=== PATIENT | male | born 1960 | race Caucasian/White ===

== ENCOUNTER 2021-10-09 20:25 | Emergency (ER) | payer MEDICARE, SELFPAY ==
--- NOTE | 2021-10-09 20:36 | ECG_ITS ---
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 Measurements Intervals Green Rate: 85 P: 66 [place]: 196 QRS: 0 QRSD: 101 T: 82 QT: 378 QTc: 450 Interpretive Statements SINUS RHYTHM Unusual R wave progression, consider lead switch leads V1 and V2 MINIMAL VOLTAGE CRITERIA FOR LVH, CONSIDER NORMAL VARIANT [MEETS CRITERIA IN ONE OF: R(aVL), S(V1), R(V5), R(V5/V6)+S(V1)] NONSPECIFIC T-WAVE ABNORMALITY No previous ECG available for comparison Electronically Signed On 10-10-2021 8:27:05 CDT by Fortino Braden M.D. [id number]
[2021-10-09 20:39] VITALS: BP 183/112; PULSE 89; RESP 20; TEMP 36.6; O2SAT 98; BMI 37.7
--- NOTE | 2021-10-09 21:00 | XRR_ITS ---
PROCEDURE INFORMATION: Exam: XR Chest Exam date and time: 10/09/2021 9:06 PM Age: 61 years old Clinical indication: Pain; Left-sided; Additional info: L shoulder chest pain TECHNIQUE: Imaging protocol: Radiologic exam of the chest. Views: 1 view. COMPARISON: No relevant prior studies available. FINDINGS: Lungs: Mild atelectasis in the left lung base. The right lung is clear. No consolidation. Pleural spaces: Unremarkable. No pleural effusion. No pneumothorax. Heart/Mediastinum: Probable calcified mediastinal and left hilar lymph nodes. Bones/joints: Rightward thoracic curvature. XR/XR chest 1V portable [id number] IMPRESSION: No acute finding.
--- NOTE | 2021-10-09 21:00 | XRR_ITS ---
PROCEDURE INFORMATION: Exam: XR Left Shoulder Exam date and time: 10/09/2021 9:06 PM Age: 61 years old Clinical indication: Condition or disease; Other: Pain in left shoulder; Additional info: L shoulder pain TECHNIQUE: Imaging protocol: Radiologic exam of the Left shoulder. Views: 2 or more views. COMPARISON: No relevant prior studies available. FINDINGS: Bones/joints: Hypertrophic degenerative changes of the left acromioclavicular joint. Mild degenerative changes of the glenohumeral joint. No fracture. Soft tissues: Normal. XR/XR shoulder LT min 2V* [id number] IMPRESSION: No acute finding.
[2021-10-09 21:14] LABS: Basophils # 0.1 10^3/uL (0.0-0.1); Basophils % 0.6 %; Eosinophils # 0.3 10^3/uL (0.0-0.8); Eosinophils % 3.3 %; Hematocrit 52.5 % (42.0-52.0); Hemoglobin 17.4 g/dL (11.7-16.6); Lymphocytes # 2.5 10^3/uL (0.8-4.8); Lymphocytes % 31.5 %; Mean Corpuscular HGB Conc 33.1 g/dL (30.0-36.0); Mean Corpuscular Hemoglobin 29.4 pg (28.0-34.0); Mean Corpuscular Volume 88.8 fl (80-94); Mean Platelet Volume 9.8 fL (7.4-10.4); Monocytes # 0.7 10^3/uL (0.2-0.9); Monocytes % 9.5 %; Neutrophils # 4.25 10^3/uL (1.8-7.7); Neutrophils % 54.7 %; Nucleated Red Blood Cells % 0 %; Platelet Count 244 10^3/cmm (130-400); Red Blood Count 5.91 10^6/uL (4.1-5.3); Red Cell Distribution Width 12.9 % (12.1-15.1); White Blood Count 7.8 10^3/uL (4.0-10.0)
[2021-10-09] MEDS: ondansetron 2 mg/ML SDV 2 mL 4 MG IVP (21:21)
[2021-10-09] MEDS: morphine 4 mg/mL SDV 1 mL IVP (21:21)
[2021-10-09 21:31] LABS: Troponin(5th) Baseline 9 ng/L (0-15)
[2021-10-09 21:41] LABS: Alanine Aminotransferase 21 U/L (0-41); Albumin Level 4.4 g/dL (3.5-5.2); Alkaline Phosphatase 131 U/L (40-130); Anion Gap 17.2 (5-19); Aspartate Amino Transferase 18 U/L (0-40); Blood Urea Nitrogen 14 mg/dL (8-23); Calcium 9.4 mg/dL (8.5-10.5); Carbon Dioxide 26 mmol/L (22-29); Chloride 103 mmol/L (98-107); Globulin 2.5 g/dL (1.3-4.6); Glomerular Filtration Rate 97.6 mL/min (90-130); Glucose 164 mg/dL (65-115); NT Pro B Type Natriuretic Pept 18 pg/mL (0-125); Osmolality Calculated 298 mOsm/kg (285-295); Potassium 4.2 mmol/L (3.5-5.1); Sodium 142 mmol/L (136-145); Total Bilirubin 0.2 mg/dL (0.15-1.2); Total Protein 6.9 g/dL (6.6-8.7)
--- NOTE | 2021-10-09 21:58 | ED_ITS ---
HPI - Chest Pain General: Chief Complaint: Chest Pain Stated Complaint: CP; left arm pain Time Seen by Provider: 10/09/21 20:48 Source: patient History of Present Illness: 61-year-old male with no prior history of coronary disease. He notes left shoulder pain worsening over 3 weeks. It became unbearable today. He localizes pain to the left posterior shoulder joint line specifically and around his left shoulder blade. He denies fever. He denies significant cough. He denies worsening shortness of breath. He denies any other chest pain. He has pain with movement of his left arm. MD complaint: other (Left shoulder pain) Onset (ago): week(s) (3) Prior episodes: Yes Onset: during rest Pain location: other (Left shoulder) Pain radiation: left scapula Severity: severe Quality: sharp Relieving factors: nothing Exacerbating factors: nothing Associated symptoms: Deny abdominal pain, dyspnea, fever(s), leg edema, nausea, palpitations or vomiting Review of Systems Const: Denies: fever(s) Eyes: Denies: change in vision ENMT: Denies: throat pain Card: Denies: chest pain or palpitations Resp: Denies: dyspnea, productive cough or non-productive cough GI: Denies: abdominal pain, nausea or vomiting : Denies: flank pain Musc: Denies: neck pain Skin/Breast: Denies: rash Neuro: Denies: headache(s) Physical Exam Const: GENERAL APPEARANCE: cooperative; not comfortable HENMT: COMMON NORMALS: normocephalic, atraumatic and Normal external nose pre sent HEAD & SCALP: normocephalic and atraumatic NOSE: Normal external nose present Eye: COMMON NORMALS: Equal, round and reactive pupils present and EOMs intact bilaterally PUPIL: Yes Equal, round and reactive pupils present Neck/C-Spine: COMMON NORMALS: full ROM and no meningeal signs GENERAL: Yes trachea midline CERVICAL SPINE: No Cervical spine tenderness Chest: CHEST: Yes Symmetrical chest wall rise Resp: COMMON NORMALS: normal respiratory effort, No use of accessory muscles and clear to auscultation bilaterally AUSCULTATION: clear to auscultation bilaterally Cardio: COMMON NORMALS: regular rate and regular rhythm RATE: regular rate RHYTHM: regular rhythm GI: COMMON NORMALS: Normal to inspection, nondistended, normoactive bowel sounds present, Soft to palpation and non-tender PALPATION: Yes Soft to palpation Extremity: NARRATIVE EXTREMITY EXAM: Examination of the left shoulder reveals tenderness to the posterior shoulder joint line as well as the anterior shoulder joint line and mildly at the AC joint. There is pain with range of motion. There is pain with full can, empty can, and speeds testing. No palpable effusion. No redness or warmth. Neuro: MARIS COMA SCALE: document GCS findings Stanley coma scale eye opening: Spontaneous Stanley coma scale verbal response: Orientated Stanley coma scale motor response: Obey commands Maris coma scale total score: 15 MENINGEAL SIGNS: Yes no meningeal signs Skin: COMMON NORMALS: no rashes or lesions noted GENERAL SKIN EXAM: no rashes or lesions noted Course Vital Signs: Vital signs: Vital Signs Temperature 97.8 F 10/09/21 20:39 Pulse Rate 89 10/09/21 20:39 Respiratory Rate 20 H 10/09/21 22:30 Blood Pressure 183/112 10/09/21 20:39 Pulse Oximetry 98 10/09/21 22:30 Oxygen Delivery Me thod 10/09/21 20:39 MDM - Chest Pain Medical Decision Making 61 year old gentleman with increasing shoulder pain over the last month or so. There is no fever. No increase to swelling, or redness. The pain seemed to spread into his [place] day potentially. The left upper chest. He's much improved after morphine currently. Is CBC is essentially normal with a mild increased hemoglobin. His BMP is normal. His baseline trop is normal. BNP normal. chest X-ray is not remarkable here and his shoulder X-ray shows some osteoarthritic change. His EKG shows no acute St changes indicative of ischemia. He'll be discharged with treatment for his shoulder pain. Orthopedic follow up. Lab Data : 10/09/21 21:00 10/09/21 21:00 Radiology Impressions Chest X-Ray 10/09/21 21:00 IMPRESSION: No acute finding. Shoulder X-Ray 10/09/21 21:00 IMPRESSION: No acute finding. Laboratory Results WBC 7.8 10^3/uL (4.0-10.0) 10/09/21 21:00 RBC 5.91 10^6/uL (4.1-5.3) H 10/09/21 21:00 Hgb 17.4 g/dL (11.7-16.6) H 10/09/21 21:00 Hct 52.5 % (42.0-52.0) H 10/09/21 21:00 MCV 88.8 fl (80-94) 10/09/21 21:00 MCH 29.4 pg (28.0-34.0) 10/09/21 21:00 MCHC 33.1 g/dL (30.0-36.0) 10/09/21 21:00 RDW 12.9 % (12.1-15.1) 10/09/21 21:00 Plt Count 244 10^3/cmm (130-400) 10/09/21 21:00 MPV 9.8 fL (7.4-10.4) 10/09/21 21:00 Neut % (Auto) 54.7 % 10/09/21 21:00 Lymph % (Auto) 31.5 % 10/09/21 21:00 [place] % (Auto) 9.5 % 10/09/21 21:00 Eos % (Auto) 3.3 % 10/09/21 21:00 Baso % (Auto) 0.6 % 10/09/21 21:00 Neut # (Auto) 4.25 10^3/uL (1.8-7.7) 10/09/21 21:00 Lymph # (Auto) 2.5 10^3/uL (0.8-4.8) 10/09/21 21:00 [place] # (Auto) 0.7 10^3/uL (0.2-0.9) 10/09/21 21:00 Eos # (Auto) 0.3 10^3/uL (0.0-0.8) 10/09/21 21:00 Baso # (Auto) 0.1 10^3/uL (0.0-0.1) 10/09/21 21:00 Nucleated RBC % (auto) 0 % 10/09/21 21:00 Nucleated RBCs # 0.0 /100WBC 10/09/21 21:00 Sodium 142 mmol/L (136-145) 10/09/21 21:00 Potassium 4.2 mmol/L (3.5-5.1) 10/09/21 21:00 Chloride 103 mmol/L (98-107) 10/09/21 21:00 Carbon Dioxide 26 mmol/L (22-29) 10/09/21 21:00 Anion Gap 17.2 (5-19) 10/09/21 21:00 BUN 14 mg/dL (8-23) 10/09/21 21:00 Creatinine 0.8 mg/dL (0.7-1.2) 10/09/21 21:00 GFR Calculation 97.6 mL/min (90-130) 10/09/21 21:00 Glucose 164 mg/dL (65-115) H 10/09/21 21:00 Calculated Osmolality 298 mOsm/kg (285-295) H 10/09/21 21:00 Calcium 9.4 mg/dL (8.5-10.5) 10/09/21 21:00 Total Bilirubin 0.2 mg/dL (0.15-1.2) 10/09/21 21:00 AST 18 U/L (0-40) 10/09/21 21:00 ALT 21 U/L (0-41) 10/09/21 21:00 Alkaline Phosphatase 131 U/L (40-130) H 10/09/21 21:00 Troponin T Baseline 9 ng/L (0-15) 10/09/21 21:00 NT-Pro-B Natriuret Pep 18 pg/mL (0-125) 10/09/21 21:00 Total Protein 6.9 g/dL (6.6-8.7) 10/09/21 21:00 Albumin 4.4 g/dL (3.5-5.2) 10/09/21 21:00 Globulin 2.5 g/dL (1.3-4.6) 10/09/21 21:00 Discharge Plan Discharge Patient Disposition: Home Clinical Impression: Acute pain of left shoulder Condition: Stable Prescriptions: New hydrocodone-acetaminophen 5-325 mg tablet 1 tab PO Q8H PRN (Reason: pain) Qty: 7 0RF Medrol (Osman) 4 mg tablets,dose pack See Rx Instructions .ROUTE .COMPLEX Qty: 21 0RF Rx Instructions: orally per package directions Discharge Orders: Discharge ED (Routine); Ordered 10/09/21 Ordered By: Enrico Holm Referrals: REMI COTO MD [Primary Care Provider] - 1-3 days Walter Cote MD [Physician] - 4-7 days Patient Instructions: Shoulder Pain (ED), Opioid Safety Activity Restrictions/Additional Instructions: Return for fever greater than 100, worsening shortness of breath, any chest discomfort, other concerning symptoms. Call the orthopedic clinic Monday for an appointment. Follow-up with your doctor as well Coding Level of Care Code ED Sheet Rock Applicator for Chg Fwd Exam Comprehensive
[2021-10-09 22:30] VITALS: RESP 20; O2SAT 98
[2021-10-09] MEDS: oxyCODONE-APAP 5-325 mg Tablet 2 TAB PO (22:30)
== END 2021-10-09 22:34 | disposition home or self-care (01) ==
PROVIDERS: Emergency Provider Emergency Medicine; PCP Family Medicine
DX: M25.512 Pain in left shoulder (principal); R07.9 Chest pain, unspecified
CPT/HCPCS: 71045; 73030; 80053; 83880; 84484; 85025; 93005; 96374; 96375; 99285; J2270; J2405; J2930

== ENCOUNTER 2022-10-01 15:36 | Emergency (ER) | payer MEDICARE, SELFPAY ==
[2022-10-01] VITALS (28 sets, daily range): BP systolic 99–156; BP diastolic 58–81; PULSE 53–65; RESP 13–19; TEMP 36.8; O2SAT 92–97; BMI 37.7
--- NOTE | 2022-10-01 15:55 | XRR_ITS ---
PROCEDURE INFORMATION: Exam: XR Right Hand Exam date and time: 10/01/2022 4:13 PM Age: 62 years old Clinical indication: Swelling; Hand; Right; Additional info: Pain/swelling TECHNIQUE: Imaging protocol: Radiologic exam of the right hand. Views: 3 or more views. COMPARISON: No relevant prior studies available. FINDINGS: Bones/joints: No fracture or dislocation is seen about the right hand. Slight degenerative change. No bone erosion or destruction. Soft tissues: Lateral view suggests mild soft tissue swelling. XR/XR hand RT min 3V* [id number] IMPRESSION: No fracture or acute osseous abnormality.
--- NOTE | 2022-10-01 15:59 | ECG_ITS ---
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 Measurements Intervals [place] Rate: 61 P: 46 DE: 217 QRS: 7 QRSD: 93 T: 50 QT: 493 QTc: 499 Interpretive Statements SINUS RHYTHM WITH FIRST DEGREE AV BLOCK MINIMAL VOLTAGE CRITERIA FOR LVH, CONSIDER NORMAL VARIANT [MEETS CRITERIA IN ONE OF: R(aVL), S(V1), R(V5), R(V5/V6)+S(V1)] PROLONGED QT INTERVAL INTERPRETATION BASED ON A DEFAULT AGE OF 40 YEARS Compared to ECG 10/09/2021 20:36:59 First degree AV block now present Prolonged QT interval now present T-wave abnormality no longer present Electronically Signed On 10-01-2022 23:25:23 CDT by Alta Joyce M.D. [id number]
--- NOTE | 2022-10-01 16:03 | XRR_ITS ---
PROCEDURE INFORMATION: Exam: XR Right Wrist Exam date and time: 10/01/2022 4:15 PM Age: 62 years old Clinical indication: Swelling; Wrist; Right; Additional info: Pain TECHNIQUE: Imaging protocol: Radiologic exam of the right wrist. Views: 3 or more views. COMPARISON: CR (UP EX, ) 10/01/2022 4:13 PM FINDINGS: Bones/joints: No fracture or dislocation is seen. Mild degenerative change. No bone erosion or destruction. Soft tissues: No significant focal soft tissue abnormality. Vasculature: Small-vessel radial artery calcification. XR/XR wrist RT min 3V* [id number] IMPRESSION: Mild degenerative change. No fracture or acute osseous abnormality.
--- NOTE | 2022-10-01 16:03 | XRR_ITS ---
PROCEDURE INFORMATION: Exam: XR Right Elbow Exam date and time: 10/01/2022 4:16 PM Age: 62 years old Clinical indication: Swelling; Elbow; Right; Additional info: Pain TECHNIQUE: Imaging protocol: Radiologic exam of the right elbow. Views: 3 or more views. COMPARISON: CR (UP EXM, ) 10/01/2022 4:15 PM FINDINGS: Bones/joints: No fracture or dislocation. Chronic appearing calcification or ossification is seen about the medial and lateral distal humerus. Mild enthesophyte noted about posterior olecranon on the lateral view. Joint spaces appear maintained. No abnormal fat pad is seen about the distal humerus on the lateral view to indicate effusion. Soft tissues: No focal abnormality. XR/XR elbow RT min 3V* [id number] IMPRESSION: 1. No fracture or acute osseous abnormality. 2. Chronic appearing calcification or ossification about the medial and lateral distal humerus and mild posterior olecranon enthesophyte. 3. No effusion.
--- NOTE | 2022-10-01 16:04 | W.ED.EXTPRO ---
HPI - Extremity Problem General: Chief complaint: Extremity Problem,Nontraumatic Stated complaint: right hand injury Time Seen by Provider: 10/01/22 15:52 Source: patient Mode of arrival: ambulatory History of Present Illness: 62-year-old male presents emergency room complaining of swelling in his right hand. Began about 2 days ago and worsened progressively. He took hydrocodone before coming to the emergency room he states whenever he takes that he gets sweaty and was indeed diaphoretic when he arrived here. She denies chest pain. No injury to the hand no crush injury he denies any fever sweats or chills no trauma of any sort that he can recall. MD Complaint: extremity pain and extremity swelling Onset (ago): day(s) (2) Pain Consistency: constant Location: right and upper extremity (Hand) Quality: aching Relieving factors: nothing Exacerbating factors: range of motion and palpation Associated symptoms: Reports arthralgias; Deny chest pain, fever(s), myalgias, rash or short of breath Review of Systems Const: Denies: fever(s) Card: Denies: chest pain, edema, dyspnea on exertion or orthopnea Resp: Denies: dyspnea, productive cough or non-productive cough GI: Denies: abdominal pain, nausea, vomiting, hematemesis, coffee ground emesis, diarrhea, constipation, bloating, hematochezia or melena : Denies: flank pain, dysuria, urinary frequency or urinary urgency Musc: Reports: joint pain and joint swelling Skin/Breast: Denies: rash or pruritus Course Vital Signs: Vital signs: Vital Signs Temperature 98.2 F 10/01/22 15:50 Pulse Rate 60 10/01/22 19:49 Respiratory Rate 13 10/01/22 19:49 Blood Pressure 156/81 10/01/22 19:49 Pulse Oximetry 94 10/01/22 19:49 Oxygen Delivery Me thod Room Air 10/01/22 18:29 MDM - Extremity (Nontraumatic) Medical Decision Making White count of 12.5. Does not appear to be cellulitic in nature with a mild elevation of his CRP x-ray was negative. He does have exquisite tenderness even with mild touch or flexion at the wrist or extension. Suspect this is more gouty arthritis given nature he has had this in the past. He was given steroids discharged home with steroids and anti-inflammatories recheck if worsens. Did not use colchicine as I suspect it would significantly worsen his kidney function. Medical Records I reviewed the patient's medical records. Lab Data I reviewed the patient's lab results. 10/01/22 15:54 10/01/22 15:54 Radiology Impressions Hand X-Ray 10/01/22 15:55 IMPRESSION: No fracture or acute osseous abnormality. Elbow X-Ray 10/01/22 16:03 IMPRESSION: 1. No fracture or acute osseous abnormality. 2. Chronic appearing calcification or ossification about the medial and lateral distal humerus and mild posterior olecranon enthesophyte. 3. No effusion. Wrist X-Ray 10/01/22 16:03 IMPRESSION: Mild degenerative change. No fracture or acute osseous abnormality. Upper Extremity CTA 10/01/22 17:04 IMPRESSION: 1. Subcutaneous soft tissue stranding from the elbow and distally, more prominent as well as more extensive involving superficial and deeper soft tissue planes diffusely at the wrist and proximal hand. Findings suggest diffuse edema which could be associated with infection or posttraumatic change. No focal fluid collection with air density to indicate abscess. 2. No fracture acute osseous abnormality. 3. Mild atherosclerotic vascular disease of the radial and ulnar arteries of the forearm. Laboratory Results WBC 12.5 10^3/uL (4.0-10.0) H 10/01/22 15:54 RBC 5.17 10^6/uL (4.1-5.3) 10/01/22 15:54 Hgb 15.2 g/dL (11.7-16.6) 10/01/22 15:54 Hct 46.5 % (42.0-52.0) 10/01/22 15:54 MCV 89.9 fl (80-94) 10/01/22 15:54 MCH 29.4 pg (28.0-34.0) 10/01/22 15:54 MCHC 32.7 g/dL (30.0-36.0) 10/01/22 15:54 RDW 13.4 % (12.1-15.1) 10/01/22 15:54 Plt Count 226 10^3/cmm (130-400) 10/01/22 15:54 MPV 9.7 fL (7.4-10.4) 10/01/22 15:54 Neut % (Auto) 58.4 % 10/01/22 15:54 Lymph % (Auto) 29.1 % 10/01/22 15:54 [place] % (Auto) 9.0 % 10/01/22 15:54 Eos % (Auto) 2.5 % 10/01/22 15:54 Baso % (Auto) 0.6 % 10/01/22 15:54 Neut # (Auto) 7.31 10^3/uL (1.8-7.7) 10/01/22 15:54 Lymph # (Auto) 3.6 10^3/uL (0.8-4.8) 10/01/22 15:54 [place] # (Auto) 1.1 10^3/uL (0.2-0.9) H 10/01/22 15:54 Eos # (Auto) 0.3 10^3/uL (0.0-0.8) 10/01/22 15:54 Baso # (Auto) 0.1 10^3/uL (0.0-0.1) 10/01/22 15:54 Nucleated RBC % (auto) 0 % 10/01/22 15:54 Nucleated RBCs # 0.0 /100WBC 10/01/22 15:54 Sodium 140 mmol/L (136-145) 10/01/22 15:54 Potassium 4.0 mmol/L (3.5-5.1) 10/01/22 15:54 Chloride 102 mmol/L (98-107) 10/01/22 15:54 Carbon Dioxide 25 mmol/L (22-29) 10/01/22 15:54 Anion Gap 17.0 (5-19) 10/01/22 15:54 BUN 11 mg/dL (8-23) 10/01/22 15:54 Creatinine 1.2 mg/dL (0.7-1.2) 10/01/22 15:54 GFR Calculation 61.0 mL/min (90-130) L 10/01/22 15:54 Glucose 225 mg/dL (65-115) H 10/01/22 15:54 Calculated Osmolality 296 mOsm/kg (285-295) H 10/01/22 15:54 Calcium 8.6 mg/dL (8.5-10.5) 10/01/22 15:54 C-Reactive Protein 29.8 mg/L (0.0-4.9) H 10/01/22 15:54 Discharge Plan Discharge Patient Disposition: Home Clinical Impression: Gout of right wrist Condition: Stable Prescriptions: New prednisone 20 mg tablet 20 mg PO TID Qty: 15 0RF Rx Instructions: 1 p.o. 3 times daily x3 days, 1 p.o. twice daily x2 days, 1 p.o. daily x2 days diclofenac sodium 75 mg tablet,delayed release (DR/EC) 75 mg PO Q12H PRN (Reason: pain) Qty: 20 0RF Discontinued ibuprofen 800 mg Tablet 800 mg PO TID PRN (Reason: Pain) Discharge Orders: Discharge ED (Routine); Ordered 10/01/22 Ordered By: Bernabe Hardin Referrals: REMI COTO MD [Primary Care Provider] - Discharge Diet: Usual diet Discharge Activity: Limit activity as instructed Patient Instructions: Opioid Safety, Pain Management Coding Level of Care Code ED Sleep Lab Technician for Karan Mcqueen
--- NOTE | 2022-10-01 16:09 | PC.NURSE ---
This nurse unable to assume care for pt as nurse is with more critical pt. Charge nurse (Alma) informed.
[2022-10-01 16:15] LABS: Basophils # 0.1 10^3/uL (0.0-0.1); Basophils % 0.6 %; Eosinophils # 0.3 10^3/uL (0.0-0.8); Eosinophils % 2.5 %; Hematocrit 46.5 % (42.0-52.0); Hemoglobin 15.2 g/dL (11.7-16.6); Lymphocytes # 3.6 10^3/uL (0.8-4.8); Lymphocytes % 29.1 %; Mean Corpuscular HGB Conc 32.7 g/dL (30.0-36.0); Mean Corpuscular Hemoglobin 29.4 pg (28.0-34.0); Mean Corpuscular Volume 89.9 fl (80-94); Mean Platelet Volume 9.7 fL (7.4-10.4); Monocytes # 1.1 10^3/uL (0.2-0.9); Neutrophils # 7.31 10^3/uL (1.8-7.7); Neutrophils % 58.4 %; Nucleated Red Blood Cells % 0 %; Platelet Count 226 10^3/cmm (130-400); Red Blood Count 5.17 10^6/uL (4.1-5.3); Red Cell Distribution Width 13.4 % (12.1-15.1); White Blood Count 12.5 10^3/uL (4.0-10.0)
--- NOTE | 2022-10-01 16:34 | PC.PHAR ---
pt states he takes no rx medications states the only thing he takes is ibuprofen prn-pt states he use to be on bp meds but states he lost weight and the dr melgar the bp meds-pt states not taken for a few years
[2022-10-01] MEDS: dexamethasone 10 mg/mL INJ IVP (16:43)
[2022-10-01] MEDS: ketorolac 60 mg/2 mL INJ 30 MG IVP (16:43)
[2022-10-01 16:57] LABS: Blood Urea Nitrogen 11 mg/dL (8-23); C Reactive Protein 29.8 mg/L (0.0-4.9); Calcium 8.6 mg/dL (8.5-10.5); Carbon Dioxide 25 mmol/L (22-29); Chloride 102 mmol/L (98-107); Glucose 225 mg/dL (65-115); Osmolality Calculated 296 mOsm/kg (285-295); Sodium 140 mmol/L (136-145)
--- NOTE | 2022-10-01 17:04 | CTR_ITS ---
PROCEDURE INFORMATION: Exam: CTA Right Upper Extremity With Contrast Exam date and time: 10/01/2022 5:41 PM Age: 62 years old Clinical indication: Pain; Arm, lower; Right; Lower or forearm and hand; Patient HX: Swelling with redness to RT upper ext from forearm down worse in the hand. ; Additional info: Swelling pain - infection TECHNIQUE: Imaging protocol: Computed tomographic angiography of the right upper extremity with contrast, including non-contrast images if performed. 3D rendering (Not supervised by radiologist): MIP and/or 3D reconstructed images were created by the technologist. Radiation optimization: All CT scans at this facility use at least one of these dose optimization techniques: automated exposure control; mA and/or kV adjustment per patient size (includes targeted exams where dose is matched to clinical indication); or iterative reconstruction. Contrast material: OMNI 350; Contrast volume: 100 ml; Contrast route: INTRAVENOUS (IV); REPORTING DATA: Count of CT and Cardiac NM exams in prior 12 months: This patient has received 0 known CTs and 0 known cardiac nuclear medicine studies in the 12 months prior to the current study. COMPARISON: CR (UP EXM, ) 10/01/2022 4:16 PM RADIATION DOSE METRICS: Total DLP (mGy-cm): 593.66 FINDINGS: Right subclavian artery: Not imaged. Axillary artery: Not image. Brachial artery: No acute findings. No occlusion or significant stenosis. Radial artery: See Bones/joints findings. Ulnar artery: See Bones/joints finding. Bones/joints: No fracture or acute osseous abnormality. No bone erosion or destruction. Mild degenerative change of the elbow and wrist. Mild subcutaneous soft tissue stranding is seen posteromedial at the elbow. More prominent soft tissue stranding is seen within the subcutaneous soft tissues forearm posteriorly to posterolaterally. At the wrist and proximal hand, ill-defined hypodensity is seen within the subcutaneous and deeper soft tissue planes diffusely. No localized or focal fluid collection is seen otherwise. Findings suggest diffuse edematous change which could be associated with posttraumatic change or infection. Mild atherosclerotic vascular disease noted about the radial and ulnar arteries of the forearm. No occlusion. Soft tissues: See Bones/joint[place] finding. [place] [id number] IMPRESSION: 1. Subcutaneous soft tissue stranding from the elbow and distally, more prominent as well as more extensive involving superficial and deeper soft tissue planes diffusely at the wrist and proximal hand. Findings suggest diffuse edema which could be associated with infection or posttraumatic change. No focal fluid collection with air density to indicate abscess. 2. No fracture acute osseous abnormality. 3. Mild atherosclerotic vascular disease of the radial and ulnar arteries of the forearm.
[2022-10-01] MEDS: morphine 4 mg/mL SDV 1 mL 2 MG IVP (17:42)
[2022-10-01] MEDS: iohexol 350 mg/mL 500 mL Btl (per mL) IV (17:53)
== END 2022-10-01 19:40 | disposition home or self-care (01) ==
PROVIDERS: Emergency Provider Family Medicine; PCP Family Medicine
DX: M10.9 Gout, unspecified (principal)
CPT/HCPCS: 73080; 73110; 73130; 73206; 80048; 85025; 86140; 93005; 96374; 96375; 99285; J1100; J1885; J2270; Q9967

== ENCOUNTER 2024-01-02 06:00 | Outpatient (RCR) | payer MEDICARE, SELFPAY | END 2024-01-13 23:59 | disposition home or self-care (01) | LOC: GPT 06:00 | PROVIDERS: Visit Provider Orthopaedic Surgery | DX: M25.511 Pain in right shoulder (principal); M25.552 Pain in left hip; M76.01 Gluteal tendinitis, right hip; M76.02 Gluteal tendinitis, left hip; M75.112 Incomplete rotator cuff tear or rupture of left shoulder, not specified as traumatic | CPT/HCPCS: 97110; 97112; 97162 ==

== ENCOUNTER 2024-01-14 06:00 | Outpatient (RCR) | payer MEDICARE, SELFPAY | END 2024-02-13 23:59 | disposition home or self-care (01) | LOC: GPT 06:00 | PROVIDERS: Visit Provider Orthopaedic Surgery | DX: M25.511 Pain in right shoulder (principal); M25.552 Pain in left hip; M76.01 Gluteal tendinitis, right hip; M76.02 Gluteal tendinitis, left hip; M75.112 Incomplete rotator cuff tear or rupture of left shoulder, not specified as traumatic | CPT/HCPCS: 97110 ==